=== PATIENT | male | born 1950 | race African-American/Black ===

== ENCOUNTER → 2017-03-21 | Outpatient (CLI) | payer BC ==
[2017-03-21 17:33] LABS: CHLORIDE 103 mEq/L (98-107)
[2017-03-21 17:44] LABS: CARBON DIOXIDE 32 mEq/L (21-32)
[2017-03-21 18:13] LABS: VITAMIN B12 SERUM 905 pg/mL (211-911)
== END | disposition home or self-care (01) ==
LOC: LAB 16:45
PROVIDERS: ATTEND Psychiatry & Neurology Neurology
DX: G62.9 Polyneuropathy, unspecified (principal)
CPT/HCPCS: 36415; 80048; 80076; 82607; 83036; 84443